=== PATIENT | male | born 1995 | race Caucasian/White ===

== ENCOUNTER 2018-12-28 19:07 | Emergency (ER) | payer OTHER ==
[~2018-12-28] VITALS: Ht 185.4 cm; Wt 118.2 kg
[2018-12-28 19:13] VITALS: BP 133/88; TEMP 98.5
[2018-12-28 20:15] VITALS: PULSE 81
== END 2018-12-28 20:13 | disposition home or self-care (01) ==
LOC: COL.ER 19:07
DX: S60.211A Contusion of right wrist, initial encounter (principal); X50.1XXA Overexertion from prolonged static or awkward postures, initial encounter; Y92.69 Other specified industrial and construction area as the place of occurrence of the external cause; Y99.0 Civilian activity done for income or pay
CPT/HCPCS: Q4021